=== PATIENT | female | born 1990 | race Caucasian/White ===

== ENCOUNTER 2018-08-16 09:54 | Emergency (ER) | payer SELFPAY | END 2018-08-16 14:30 | disposition home or self-care (01) | LOC: EDH 09:54 | DX: O20.8 Other hemorrhage in early pregnancy (principal); O34.81 Maternal care for other abnormalities of pelvic organs, first trimester; N83.291 Other ovarian cyst, right side; E07.9 Disorder of thyroid, unspecified; Z3A.01 Less than 8 weeks gestation of pregnancy; Z88.1 Allergy status to other antibiotic agents | CPT/HCPCS: 76856; 81025; 87210; 87486; 87797 ==

== ENCOUNTER 2019-05-10 11:59 | Emergency (ER) | payer OTHER ==
[2019-05-10] MEDS ORDERED: AMOXICILLIN/POTASSIUM CLAV 875-125 TABLET PO ONE (13:02)
[2019-05-10] MEDS ORDERED: TETANUS/DIPHTHERIA TOXOID [ADULT] 0.5 ML VIAL IM ONE (13:02)
== END 2019-05-10 15:42 | disposition home or self-care (01) ==
LOC: EDH 11:59
DX: S50.871A Other superficial bite of right forearm, initial encounter (principal); L03.113 Cellulitis of right upper limb; E07.9 Disorder of thyroid, unspecified; Z88.1 Allergy status to other antibiotic agents; W54.0XXA Bitten by dog, initial encounter; Y93.89 Activity, other specified; Y92.89 Other specified places as the place of occurrence of the external cause; Y99.8 Other external cause status
CPT/HCPCS: 90471; 90714